=== PATIENT | female | born 1980 | race Caucasian/White ===

== ENCOUNTER 2023-12-26 13:39 | Day surgery (SDC) | payer OTHER ==
[~2023-12-26] VITALS: Ht 170.2 cm; Wt 93.2 kg
[~2023-12-26 13:39] MED LIST: Atropine Sulfate 0.1 MG/ML 10ML SYR ONE; Glycopyrrolate 0.2 MG/ML 1MLVIAL ONE; Lactated Ringer's 1,000 ML IV ONE; Lidocaine 2% 5 ML SDV ONE; Lidocaine HCl/Pf 1% 5 ML VIAL ONE; Ondansetron HCl 2 MG / ML 2ML Vial ONE; ePHEDrine Sulfate 50 MG/ML 1ML Injection ONE; propofoL 50 ML IV ONE
[2023-12-26] MEDS ORDERED: Norco 10-325 T1 EACH (14:29)
[2023-12-26] MEDS ORDERED: PROG100 (14:30)
[2023-12-26] MEDS ORDERED: PANT20 (14:30)
[2023-12-26] MEDS ORDERED: MIRALAX17 GM (14:30)
[2023-12-26] MEDS ORDERED: Lactated Ringer's 1,000 ML IV ONE (16:00)
[2023-12-26] MEDS ORDERED: Midazolam HCL 1 MG/ML 5MLVIAL ONE (16:08)
[2023-12-26] MEDS ORDERED: propofoL 50 ML IV ONE (16:44)
--- NOTE | 2023-12-26 17:42 | NUR ---
12/26/231741 Tiffany Robin PATIENT HAS CHRONIC BACK PAIN, RN INSTRUCTED PT TO GO HOME EAT AND TAKE HER PAIN MEDICAITON. PT VERBALIZES UNDERSTANDING.
== END 2023-12-26 17:38 | disposition home or self-care (01) ==
LOC: ORSCSDS 13:39
PROVIDERS: Internal Medicine Gastroenterology
PROC: 0DJD8ZZ Inspection of Lower Intestinal Tract, Via Natural or Artificial Opening Endoscopic (ICD-10-PCS; principal; 2023-12-26 15:00)
PROC: 0DJ08ZZ Inspection of Upper Intestinal Tract, Via Natural or Artificial Opening Endoscopic (ICD-10-PCS; principal; 2023-12-26 15:00)
DX: K21.9 Gastro-esophageal reflux disease without esophagitis (principal); K59.04 Chronic idiopathic constipation; F41.8 Other specified anxiety disorders; Z79.899 Other long term (current) drug therapy
CPT/HCPCS: J0461; J2001; J2250; J2405; J2704; J7120